=== PATIENT | female | born 1940 | race Caucasian/White ===

== ENCOUNTER 2018-02-22 15:46 | Emergency (ER) | payer MEDICARE, OTHER ==
[~2018-02-22] VITALS: Ht 162.6 cm; Wt 50.0 kg
[~2018-02-22 15:46] MED LIST: DIAZ5TAB4 PO; LISI10TA4 PO; OMEP20CA10 PO; ONDA4TAB6 PO; OXYC40TA48 PO; POTA10TA15 PO; PRED5TAB PO; SUMA50TA PO
[2018-02-22] MEDS ORDERED: normal saline 1000ML IV soln IVB ONE (16:15)
[2018-02-22] MEDS ORDERED: albuterol 2.5 MG/3 ML nebule NEB ONE (16:15)
[2018-02-22] MEDS ORDERED: methylPREDNISolone sod succ 125mg/2ml vial IV ONE (16:15)
[2018-02-22 16:47] LABS: BASOPHILS % (AUTO) 0.8 % (0-1); EOSINOPHILS # (AUTO) 0.1 X10'3 (0-0.9); EOSINOPHILS % (AUTO) 1.9 % (0-6); HEMATOCRIT 38.5 % (35.0-45.0); HEMOGLOBIN 12.9 g/dl (12.0-16.0); LYMPHOCYTES # (AUTO) 1.5 X10'3 (1.1-4.8); LYMPHOCYTES % (AUTO) 31.7 % (21-51); MEAN CORPUSCULAR HEMOGLOBIN 31.6 PG (27.0-31.0); MEAN CORPUSCULAR HGB CONC 33.6 % (33.0-36.5); MEAN CORPUSCULAR VOLUME 94.3 FL (78-98); MEAN PLATELET VOLUME 8.4 FL (7.4-10.4); MONOCYTES % (AUTO) 19.7 % (2-12); NEUTROPHILS # (AUTO) 2.2 X10'3 (1.8-7.7); NEUTROPHILS % (AUTO) 45.9 % (42-75); PLATELET COUNT 209 X10'3 (140-440); RED BLOOD COUNT 4.08 X10'6 (4.20-5.60); WHITE BLOOD COUNT 4.8 X10'3 (4.5-11.0)
[2018-02-22 16:58] LABS: ALANINE AMINOTRANSFERASE 22 U/L (12-78); ALBUMIN 3.1 G/DL (3.4-5.0); ALBUMIN/GLOBULIN RATIO 0.9 (1.1-1.5); ALKALINE PHOSPHATASE 68 IU/L (46-116); ANION GAP 6 (8-16); ASPARTATE AMINO TRANSFERASE 29 U/L (10-37); BILIRUBIN,TOTAL 0.1 MG/DL (0.1-1.0); BLOOD UREA NITROGEN 12 MG/DL (7-18); CHLORIDE 96 MMOL/L (99-107); CREATININE 0.75 MG/DL (0.40-0.90); GLUCOSE 90 MG/DL (70-104); POTASSIUM 4.6 MMOL/L (3.5-5.1); SODIUM 132 MMOL/L (135-145); TOTAL CARBON DIOXIDE 30.2 MMOL/L (24-32); TOTAL PROTEIN 6.7 G/DL (6.4-8.2); eGFR 75 ML/MIN
[2018-02-22] MEDS ORDERED: AMOX-419 PO (17:30)
[2018-02-22] MEDS ORDERED: GUAI120015 PO (17:30)
[2018-02-22] MEDS ORDERED: cloNIDine 0.1 mg tablet PO ONE (17:35)
[2018-02-22] MEDS ORDERED: morphine 4 MG/ML inj SYRINge IV ONE (17:35)
[2018-02-22 18:05] VITALS: BP 192/95
== END 2018-02-22 18:29 | disposition home or self-care (01) ==
LOC: ER 15:47
DX: J20.9 Acute bronchitis, unspecified (principal); I10 Essential (primary) hypertension; G43.909 Migraine, unspecified, not intractable, without status migrainosus; M06.9 Rheumatoid arthritis, unspecified; Z98.890 Other specified postprocedural states; Z79.2 Long term (current) use of antibiotics; Z79.899 Other long term (current) drug therapy
CPT/HCPCS: 36415; 71045; 80053; 85025; 93005; 94640; 94760; 96374; 96375; 99285; J2270; J2930; J7030

== ENCOUNTER 2018-12-08 02:08 | Emergency (ER) | payer MEDICARE, OTHER ==
[~2018-12-08] VITALS: Ht 160 cm; Wt 50.0 kg
[~2018-12-08 02:08] MED LIST changes: +GUAI120015 PO
[2018-12-08] MEDS ORDERED: LORazepam 0.5 MG tablet PO PRN (02:50)
[2018-12-08] MEDS ORDERED: normal saline 1000ML IV soln IVB ONE (02:50)
[2018-12-08] MEDS ORDERED: LORazepam 2 mg/ml vial IV ONE ×2 (03:25→05:15)
--- NOTE | 2018-12-08 03:31 | NUR ---
EKG delayed. Pt reports she will be more cooperative after being medicated.
[2018-12-08] MEDS ORDERED: metoclopramide 5 mg/ml inj IV ONE (04:55)
--- NOTE | 2018-12-08 04:58 | NUR ---
discussed pt's c/o nausea and restlessness with dr reynolds; new order received.
[2018-12-08 05:30] LABS: ALANINE AMINOTRANSFERASE 21 U/L (12-78); ALBUMIN 3.1 G/DL (3.4-5.0); ALKALINE PHOSPHATASE 49 IU/L (46-116); ANION GAP 9 (8-16); BILIRUBIN,TOTAL 0.5 MG/DL (0.1-1.0); BLOOD UREA NITROGEN 9 MG/DL (7-18); CALCIUM 8.4 MG/DL (8.5-10.1); CHLORIDE 103 MMOL/L (99-107); CREATININE 0.45 MG/DL (0.40-0.90); GLUCOSE 99 MG/DL (70-104); SODIUM 135 MMOL/L (135-145); TOTAL CARBON DIOXIDE 22.8 MMOL/L (24-32); TOTAL PROTEIN 6.2 G/DL (6.4-8.2); eGFR > 90 ML/MIN
[2018-12-08 05:32] LABS: LIPASE 65 U/L (73-393); TROPONIN I < 0.04 NG/ML (0.0-0.05)
[2018-12-08 05:38] LABS: ASPARTATE AMINO TRANSFERASE 32 U/L (10-37); POTASSIUM 4.1 MMOL/L (3.5-5.1)
[2018-12-08 06:38] LABS: BASOPHILS % (AUTO) 0.7 % (0-1); EOSINOPHILS # (AUTO) 0.1 X10'3 (0-0.9); EOSINOPHILS % (AUTO) 0.9 % (0-6); HEMATOCRIT 38.2 % (35.0-45.0); HEMOGLOBIN 12.9 g/dl (12.0-16.0); LYMPHOCYTES # (AUTO) 1.2 X10'3 (1.1-4.8); LYMPHOCYTES % (AUTO) 18.4 % (21-51); MEAN CORPUSCULAR HEMOGLOBIN 31.8 PG (27.0-31.0); MEAN CORPUSCULAR HGB CONC 33.7 g/dL (33.0-36.5); MEAN CORPUSCULAR VOLUME 94.3 FL (78-98); MEAN PLATELET VOLUME 7.6 FL (7.4-10.4); MONOCYTES % (AUTO) 14.8 % (2-12); NEUTROPHILS # (AUTO) 4.2 X10'3 (1.8-7.7); NEUTROPHILS % (AUTO) 65.2 % (42-75); PLATELET COUNT 193 X10'3 (140-440); RED BLOOD COUNT 4.05 X10'6 (4.20-5.60); RED CELL DISTRIBUTION WIDTH 14.1 % (11.5-14.5); WHITE BLOOD COUNT 6.5 X10'3 (4.5-11.0)
[2018-12-08] MEDS ORDERED: gabapentin 400mg capsule PO SCH (06:50)
[2018-12-08] MEDS ORDERED: gabapentin 300mg capsule PO ONE (06:50)
[2018-12-08] MEDS ORDERED: sucralfate 1gm/10ml UD suspension PO STA (06:56)
[2018-12-08] MEDS ORDERED: mag hydrox/Alum hydrox/simeth 30ml oral suspension PO ONE (07:00)
[2018-12-08] MEDS ORDERED: LIDOcaine Viscous 15ml cup PO ONE (07:00)
[2018-12-08 07:42] LABS: CLARITY,URINE CLEAR (Clear); COLOR,URINE STRAW (Yellow); GLUCOSE, URINE NEGATIVE (Neg); KETONES,URINE NEGATIVE (Neg); LEUKOCYTE ESTERASE ,URINE MODERATE (Neg); NITRITES, URINE NEGATIVE (Neg); OCCULT BLOOD,URINE SMALL (Neg); PROTEIN,URINE NEGATIVE (Neg); UROBILINOGEN,URINE 0.2 E.U/dL (0.2-1.0)
[2018-12-08 07:45] LABS: UA COLLECTION TYPE VOIDED
[2018-12-08 07:53] LABS: BACTERIA,URINE 1+ /HPF (Neg); RBC,URINE 0-2 /HPF (0-2); SQUAMOUS EPITHELIAL CELL,UR FEW /LPF (FEW)
[2018-12-08 07:54] LABS: MUCUS STRANDS NONE SEEN /LPF (Neg)
--- NOTE | 2018-12-08 08:01 | NUR ---
Patient trying to contact daughter for picking supervisor . Contacted daughter , daughter requested we call [facility] . Phoned the number in the chart and was unable to reach . bilingual student tutor at bedside helping patient with her cell phone. Patient was able to speak to her who stated he was on his way to [facility] to picking supervisor pt.
--- NOTE | 2018-12-08 08:45 | NUR ---
Patient blood pressure 182/94 per manual cuff, Notified Dr Gonsalez of value and that she takes atenolol . Dr gonsalez stated patient can take blood pressure once she gets home and to follow up with Dr canada this am for a appointment. Dr Gonsalez to bedside to discuss with about the patient need to take BP meds this am at home as well as get some sleep. patient taken to [employer] via wheel chair to car.
[2018-12-08 09:24] VITALS: BP 182/94
--- NOTE | 2018-12-11 09:28 | NUR ---
PT CALLED FOR F/U ON LAB RESULTS. PT NOTIFIED THAT SHE HAS A POSITIVE URINE CULTURE. PT DENIES ANY UTI SYMPTOMS. PER DR YARBROUGH PT WAS ADVISED TO F/U WITH PMD TO HAVE HER URINE RETESTED THIS WEEK. PT DID MENTION THAT SHE HAS HAD SOME FALLS RECENTLY SECONDARY TO PAST HIP SURGERY, HAVING SOME "PUFFINESS" AT THE AFFECTED HIP AND THAT HER STOMACH WAS BOTHERING HER STILL. PT DENIED BEING ON BLOOD THINNERS. RECOMMENDED TO THE PT THAT SHE SHOULD CONSIDER COMMING BACK INTO THE ER FOR A RE-EVALUATION AND PT RESPECTFULLY DECLINED, BUT STATED THAT IF SHE STARTED FEELING INCREASED DISCOMFORT SHE WOULD COME INTO THE ER.
== END 2018-12-08 09:20 | disposition home or self-care (01) ==
LOC: ER 02:08
DX: F41.9 Anxiety disorder, unspecified (principal); R10.13 Epigastric pain; R19.7 Diarrhea, unspecified; G43.909 Migraine, unspecified, not intractable, without status migrainosus; M06.9 Rheumatoid arthritis, unspecified; Z79.899 Other long term (current) drug therapy; Z98.890 Other specified postprocedural states
CPT/HCPCS: 36415; 80053; 81001; 83690; 84484; 85025; 87077; 87088; 87186; 96374; 96375; 96376; 99284; J2060; J2765

== ENCOUNTER 2019-01-07 09:20 | Emergency (ER) | payer MEDICARE, OTHER ==
[~2019-01-07] VITALS: Ht 160 cm; Wt 45.0 kg
[~2019-01-07 09:20] MED LIST changes: -OMEP20CA10 PO; +OMEP20CA11 PO; +ONDA4TAB12 PO
[2019-01-07 09:23] VITALS: BP 178/87
[2019-01-07] MEDS ORDERED: fentaNYL/PF 50MCG/1 ML 2ML syringe IV ONE (09:55)
[2019-01-07] MEDS ORDERED: ondansetron/PF 4mg/2ml inj IV ONE (09:55)
[2019-01-07] MEDS ORDERED: normal saline 1000ML IV soln IVB ONE (09:55)
[2019-01-07 10:54] LABS: BASOPHILS # (AUTO) 0.1 X10'3 (0-0.2); BASOPHILS % (AUTO) 1.3 % (0-1); EOSINOPHILS % (AUTO) 0.6 % (0-6); HEMATOCRIT 37.6 % (35.0-45.0); HEMOGLOBIN 12.6 g/dl (12.0-16.0); LYMPHOCYTES # (AUTO) 1.1 X10'3 (1.1-4.8); LYMPHOCYTES % (AUTO) 16.6 % (21-51); MEAN CORPUSCULAR HEMOGLOBIN 31.6 PG (27.0-31.0); MEAN CORPUSCULAR HGB CONC 33.5 g/dL (33.0-36.5); MEAN CORPUSCULAR VOLUME 94.1 FL (78-98); MEAN PLATELET VOLUME 7.2 FL (7.4-10.4); MONOCYTES # (AUTO) 1.4 X10'3 (0-0.9); MONOCYTES % (AUTO) 21.7 % (2-12); NEUTROPHILS # (AUTO) 3.8 X10'3 (1.8-7.7); NEUTROPHILS % (AUTO) 59.8 % (42-75); PLATELET COUNT 308 X10'3 (140-440); RED BLOOD COUNT 3.99 X10'6 (4.20-5.60); RED CELL DISTRIBUTION WIDTH 14.4 % (11.5-14.5); WHITE BLOOD COUNT 6.4 X10'3 (4.5-11.0)
[2019-01-07] MEDS ORDERED: morphine 4 MG/ML inj SYRINge IV ONE (11:10)
[2019-01-07 11:19] LABS: ALANINE AMINOTRANSFERASE 26 U/L (12-78); ALBUMIN/GLOBULIN RATIO 0.8 (1.1-1.5); ALKALINE PHOSPHATASE 52 IU/L (46-116); ANION GAP 6 (8-16); ASPARTATE AMINO TRANSFERASE 31 U/L (10-37); BILIRUBIN,TOTAL 0.3 MG/DL (0.1-1.0); BLOOD UREA NITROGEN 12 MG/DL (7-18); BUN/CREATININE RATIO 21.8 (6.6-38.0); CALCIUM 8.9 MG/DL (8.5-10.1); CHLORIDE 100 MMOL/L (99-107); CREATININE 0.55 MG/DL (0.40-0.90); GLUCOSE 100 MG/DL (70-104); LIPASE 76 U/L (73-393); SODIUM 134 MMOL/L (135-145); TOTAL CARBON DIOXIDE 27.8 MMOL/L (24-32); TOTAL PROTEIN 6.8 G/DL (6.4-8.2); eGFR > 90 ML/MIN
[2019-01-07] MEDS ORDERED: ONDA4TAB12 PO (11:55)
[2019-01-07] MEDS ORDERED: ketorolac trometh. 30mg/ml inj. IV ONE (11:55)
== END 2019-01-07 12:05 | disposition home or self-care (01) ==
LOC: ER 09:21
DX: E86.0 Dehydration (principal); G89.29 Other chronic pain; G43.909 Migraine, unspecified, not intractable, without status migrainosus; M06.9 Rheumatoid arthritis, unspecified; F41.9 Anxiety disorder, unspecified; Z98.890 Other specified postprocedural states; Z87.11 Personal history of peptic ulcer disease; Z79.899 Other long term (current) drug therapy
CPT/HCPCS: 36415; 80053; 83690; 85025; 96374; 96375; 99283; J1885; J2270; J2405; J3010; J7030

== ENCOUNTER 2019-11-13 07:26 | Emergency (ER) | payer MEDICARE, OTHER ==
[~2019-11-13] VITALS: Ht 160 cm; Wt 43.2 kg
[~2019-11-13 07:26] MED LIST changes: -OMEP20CA11 PO; +OMEP20CA15 PO
[2019-11-13] MEDS ORDERED: oxyCODONE/APAP 10/325mg tablet PO ONE (07:55)
[2019-11-13] MEDS ORDERED: LORazepam 1 MG tablet PO ONE (07:55)
[2019-11-13 09:04] VITALS: BP 159/60
--- NOTE | 2019-11-13 09:04 | NUR ---
Assumed care of pt. Resting in [facility]. States pain 9/10 at this time. Pt states pain never gets lower than 7/10 at baseline.
[2019-11-13] MEDS ORDERED: OXYC-150 PO (09:13)
== END 2019-11-13 09:40 | disposition home or self-care (01) ==
LOC: ER 07:27
DX: S70.01XA Contusion of right hip, initial encounter (principal); M25.552 Pain in left hip; G89.29 Other chronic pain; G43.909 Migraine, unspecified, not intractable, without status migrainosus; M06.9 Rheumatoid arthritis, unspecified; Z98.890 Other specified postprocedural states; Z79.899 Other long term (current) drug therapy; W18.30XA Fall on same level, unspecified, initial encounter; Y93.89 Activity, other specified; Y92.89 Other specified places as the place of occurrence of the external cause; Y99.9 Unspecified external cause status
CPT/HCPCS: 73522; 99284

== ENCOUNTER 2019-11-15 07:50 | Emergency (ER) | payer MEDICARE, OTHER ==
[~2019-11-15] VITALS: Ht 160 cm; Wt 43.1 kg
[~2019-11-15 07:50] MED LIST changes: +OXYC-150 PO
[2019-11-15] MEDS ORDERED: ondansetron/PF 4mg/2ml inj IV ONE (08:15)
[2019-11-15] MEDS ORDERED: oxyCODONE/APAP 10/325mg tablet PO ONE (08:15)
[2019-11-15] MEDS ORDERED: LORazepam 2 mg/ml vial IV ONE (08:15)
[2019-11-15] MEDS ORDERED: morphine 4 MG/ML inj SYRINge IV ONE ×2 (08:15→10:05)
[2019-11-15] MEDS ORDERED: ketorolac trometh. 30mg/ml inj. IV ONE (09:15)
[2019-11-15] MEDS ORDERED: LORA-269 PO (10:05)
[2019-11-15] MEDS ORDERED: OXYC-150 PO (10:05)
[2019-11-15 10:19] VITALS: BP 153/87
== END 2019-11-15 10:30 | disposition home or self-care (01) ==
LOC: ER 07:51
DX: F41.0 Panic disorder [episodic paroxysmal anxiety] (principal); M25.559 Pain in unspecified hip; G89.29 Other chronic pain; M06.9 Rheumatoid arthritis, unspecified; Z98.890 Other specified postprocedural states; Z79.899 Other long term (current) drug therapy
CPT/HCPCS: 96374; 96375; 96376; 99284; J1885; J2060; J2270; J2405

== ENCOUNTER 2019-11-17 12:11 | Emergency (ER) | payer MEDICARE, OTHER ==
[~2019-11-17] VITALS: Ht 160 cm; Wt 40.9 kg
[~2019-11-17 12:11] MED LIST changes: +LORA-269 PO
--- NOTE | 2019-11-17 13:49 | NUR ---
pt is very forgetful, aggitaed and tearful, she was assisted to a commode and gave ua, will continue to monitor pt
--- NOTE | 2019-11-17 14:09 | NUR ---
[facility] [phone]
[2019-11-17] MEDS ORDERED: LORazepam 1 MG tablet PO ONE (14:10)
[2019-11-17] MEDS ORDERED: HYDROcodone/acetaminophen 5mg/325mg tablet PO ONE (14:10)
--- NOTE | 2019-11-17 14:11 | NUR ---
LEFT MESSAGE FOR WANTED TO ASK HIM IF HE HAS HER CELL PHONE PT SAYS SHE BROUGHT IT IN WITH HER BUT IT IS NOT ON HER ROOM OR IN TRIAGE
[2019-11-17] MEDS ORDERED: HYDR-4383 PO (14:17)
[2019-11-17] MEDS ORDERED: LORA-269 PO (14:17)
--- NOTE | 2019-11-17 14:18 | NUR ---
Pt medicated as ordered for pain and anxiousness. Pt reports I don't need the pills, I want an injection. Explained to the patient that the dose is ordered as pills instead of injection.
--- NOTE | 2019-11-17 14:24 | NUR ---
TALKED TO Linda ROCHA HE HAS PATIENTS CELL PHONE AND WILL BE HERE IN 15-20 MIN TO PICK PT UP
[2019-11-17 14:50] VITALS: BP 200/111
== END 2019-11-17 14:56 | disposition home or self-care (01) ==
LOC: ER 12:11
DX: F41.0 Panic disorder [episodic paroxysmal anxiety] (principal); M25.552 Pain in left hip; G89.29 Other chronic pain; M06.9 Rheumatoid arthritis, unspecified; F41.9 Anxiety disorder, unspecified; Z98.890 Other specified postprocedural states; Z79.899 Other long term (current) drug therapy
CPT/HCPCS: 99284